=== PATIENT | male | born 1975 | race Two or more races ===

== ENCOUNTER 2025-01-27 00:05 | Emergency (ER) | payer MEDICAID, SELFPAY ==
[2025-01-27 00:06] VITALS: BMI 30.4
[2025-01-27 00:27] VITALS: BP 128/85; PULSE 95; RESP 18; TEMP 36.6; O2SAT 97
--- NOTE | 2025-01-27 01:09 | XR_ITS ---
Examination: Right elbow 3 views Technique: Elbow AP, oblique, lateral 3 views Exam date and time: January 27, 2025, 0125 hours INDICATIONS: Patient fell today with injury to the elbow, elbow pain FINDINGS: No acute fracture No dislocation No foreign body IMPRESSION: No acute fracture.
--- NOTE | 2025-01-27 01:09 | XR_ITS ---
Examination: PA lateral chest 2 views TECHNIQUE: Upright PA and lateral chest 2 views INDICATIONS: Mid back pain beginning 2 days ago. Date and time: January 07, 2025 0124 hours FINDINGS: Suspicious for early right perihilar right basilar pneumonia Small right pleural effusion Normal heart size Left lung clear IMPRESSION: Suspicious for early right perihilar right basilar pneumonia Small right pleural effusion
--- NOTE | 2025-01-27 05:23 | PRELIM_ITS ---
Radiographs of the right elbow joint (3 views). January 27, 2025 0120 hours Clinical history: Injury/swelling/pain. Comparison: No prior study is available for comparison. Findings: There is no evidence of fracture or dislocation. The elbow joint is normal in configuration and alignment. The visualized bones are of normal configuration and density. The periarticular soft tissues are normal. Impression: No evidence of fracture or dislocation. Report Electronically Signed By: Marcus Lisa 01/27/2025 5:23:28 AM [EST]
--- NOTE | 2025-01-27 05:25 | PRELIM_ITS ---
Radiographs of the chest (2 views). January 27, 2025 at 0121 hours Clinical history: Right lung pain. Comparison: No prior study is available for comparison. Findings: The heart, mediastinum and pulmonary ivana are unremarkable. Small right pleural effusion. Right basilar consolidation. The bony thorax is unremarkable. No pneumothorax. Impression: Right basilar consolidation suspicious for pneumonia. Small right pleural effusion. Report Electronically Signed By: Marcus Lisa 01/27/2025 5:24:28 AM [EST]
--- NOTE | 2025-01-27 05:32 | XR_ITS ---
Examination: Forearm, right, 2 views. Technique: Forearm, AP, lateral 2 views Date and time of exam: January 27, 2025, 0536 hours INDICATIONS: Patient fell today with injury to the forearm, forearm pain. FINDINGS: No acute fracture. No dislocation No foreign body IMPRESSION: No acute fracture
--- NOTE | 2025-01-27 05:52 | EDNOTE_ITS ---
<Statement entered by Lola Gee MD - 01/27/25 18:56> As co-signing physician, I was present and available for consult prn. I concur with the plan and care as documented by the midlevel provider. ED General RME/HPI General Chief complaint: Back Pain/Injury Stated complaint: MID BACK PAIN, SWELLING TO RIGHT ARM Time Seen by Provider: 01/27/25 00:59 Arrival date/time: 01/27/25 00:05 RME / HPI RME / HPI narrative: 49-year-old male presents to the ED with a complaint of right elbow swelling as well as right mid back pain. He states 4 days ago he fell on the curb and injured his right elbow area. He has had swelling ever since. He had a small abrasion that is since healed. His right mid back pain feels similar to when he had pneumonia in the past. He denies any fever or chills, nausea or vomiting. He denies any upper respiratory complaints or cough. He denies any numbness or tingling to his hand. Related Data Home Medications ?Medication ?Instructions ?Recorded ?Confirmed sitagliptin phosphate 100 mg 100 mg PO 1XD 03/05/23 tablet (Januvia) Previous Rx's ?Medication ?Instructions ?Recorded amoxicillin 875 mg-potassium 1 tab PO BID Pneumonia 7 days #14 01/27/25 clavulanate 125 mg tablet tabs ibuprofen 600 mg tablet 600 mg PO Q8H PRN pain #15 t abs 01/27/25 Allergies Allergy/AdvReac Type Severity Reaction Status Date / Time No Known Allergies Allergy Verified 07/30/23 22:06 Review of Systems Review of Systems Systems Reviewed: All systems reviewed, normal except as documented Past Medical History Past Medical History NEUROLOGIC: Negative Neurological Disorders or Seizures CARDIAC: Positive Hypercholesterolemia; Negative Cardiac Disorders or Congestive Heart Failure RESPIRATORY: Positive Pneumonia; Negative Chronic Obstructive Pulmonary Disease (COPD) or Asthma GASTROINTESTINAL: Negative Gastrointestinal Disorders GENITOURINARY: Negative Genitourinary Disorders or Renal Disease MUSCULOSKELETAL: Negative Musculoskeletal Disorders ENDOCRINE: Positive Endocrine Disorders and Diabetes Mellitus Type 2; Negative Diabetes Mellitus Type 1 HEMATOLOGIC: Negative Blood Disorders or Sickle Cell Disease OTHER HISTORY: Positive Hospitalization and Chicken Pox; Negative Blood Transfusions, Blood Transfusion Reaction, Anesthesia Reactions or Cancer Family History FAMILY HISTORY: Negative Family Surgery Social History SMOKING STATUS: Current every day smoker SUBSTANCE USE: methamphetamine (Stopped about 8 years ago) ED Exam Narrative Physical exam: A&O, afebrile and non-toxic appearing 49-year-old male, no acute distress. Lung sounds are diminished at the bases, otherwise clear without wheezing or rhonchi. RRR, Abdomen is soft, nontender, and non-distended. Right elbow reveals swelling without erythema, warmth or tenderness to the olecranon process. Mild fluctuance, small healed abrasion. Small fixed, nontender lump noted to the proximal forearm/ulna. CMS intact distally. Moves all extremities well. Course Course Course Narrative: XR chest reveals small right pleural effusion as well as small consolidation consistent with right lower lobe pneumonia. XR elbow right reveals no fracture or dislocation. No anterior or posterior fat pad noted. X-ray of the right forearm reveals no fracture or periosteal lifting. Patient was given Augmentin 875 mg p[address] for his pneumonia. Dr. GEE into evaluate patient, agrees with traumatic bursitis diagnosis. Quality Measures none Orders Category Date Time Status XR chest 2V Stat Exams 01/27/25 01:09 Completed XR elbow comp RT min 3V Stat Exams 01/27/25 01:09 Completed XR forearm RT 2V Stat Exams 01/27/25 05:32 Completed Amoxicillin/Pot Clav 875 [Augmentin 875] Med 01/27/25 05:32 Discontinued 1 tab PO X1 ONE Vital Signs Vital signs: Vital Signs Temperature 97.9 F 01/27/25 00:27 Pulse Rate 95 01/27/25 00:27 Respiratory Rate 18 01/27/25 00:27 Blood Pressure 128/85 H 01/27/25 00:27 Pulse Oximetry (%) 97 01/27/25 00:27 Oxygen Delivery Method Room Air 01/27/25 00:27 Discharge Plan Plan Patient Disposition: HOME (Self Care) Discharge Disposition comment: Stable Prescriptions/Referrals Prescriptions/Med Rec: New amoxicillin-pot clavulanate 875-125 mg tablet 1 tab PO BID 7 Days Qty: 14 0RF ibuprofen 600 mg tablet 600 mg PO Q8H PRN (Reason: pain) Qty: 15 0RF No Action Januvia 100 mg tablet 100 mg PO 1XD Referrals: Eliseo Whitley PA-C [Primary Care Provider] - In 1 week Problem List Clinical Impression: Pneumonia, Olecranon bursitis of right elbow Patient/Caregiver Discharge Instructions Education Materials: ED Pneumonia (Adult), ED Bursitis Elbow Olecranon Additional Instructions: Take the antibiotics as prescribed and complete the course even though you may be feeling better. Follow-up with your primary care physician in 24 to 48 hours. Return to the ED for any new or worsening symptoms. Print Language: Korean Stand Alone Forms: Martine Award Info., Patient Portal Info Letter PA/HOTEL HOUSEMAN Supervising Physician PA/HOTEL HOUSEMAN Supervising Physician: Dr. Gee [facility] Narrative [facility] hospital course: Symptoms, exam and diagnostic studies are consistent with: #1 right lower lobe consolidation consistent with pneumonia. #2 small right pleural effusion. #3 right olecranon traumatic bursitis. Patient was discharged home in stable condition with an Rx for Augmentin 875 mg p.o. twice daily. Patient/family advised to follow-up with their PCP in 24-48 hours. Encouraged to return to the ED for any new or worsening symptoms. Procedures done or offered: N/A Clinical Information Provided by patient Medical Records Reviewed [facility] Meds/Rx Considered, not Ordered None Describe details: N/A Labs/Rad/Tests considered, not Ordered None Describe details: N/A Chronic Illness/Social Conditions which may negatively complicate care or outcome(s)-explain: Homeless EKG EKG not done Lab Interpretation Labs: none Lab(s) interpretation(s): N/A Imaging Imaging interpretation: see narrative above Radiology reports / interpretation(s): As noted above Medication Administration(s) Medication Administration History Discontinued Medications Amoxicillin/Clavulanate Potassium (Amoxicillin/Pot Clav 875 Tablet) 1 tab PO X1 ONE Stop: 01/27/25 05:33 As noted above Diagnosis Differential diagnosis: R elbow traumatic olecranon bursitis vs fx vs contusion vs abscess Differential dx and/or dx ruled out: Fracture and abscess Most likely dx, and/or detailed dx discussion: Right elbow traumatic olecranon bursitis as well as right lower lobe pneumonia Dispositon Disposition: Discharge Home Disposition comments: Patient is stable for discharge
[2025-01-27] MEDS: AMOXICILLIN/POT CLAV 875 TABLET 1 TAB PO (06:08)
[2025-01-27 06:10] VITALS: BP 147/97; PULSE 84; RESP 16; TEMP 36.6; O2SAT 99
== END 2025-01-27 06:29 | disposition home or self-care (01) ==
PROVIDERS: Emergency Provider Emergency Medicine; PCP Physician Assistant
DX: M70.21 Olecranon bursitis, right elbow (principal); J18.9 Pneumonia, unspecified organism; J90 Pleural effusion, not elsewhere classified
CPT/HCPCS: 71046; 73080; 73090; 99283; A9270